=== PATIENT | female | born 2000 | race Caucasian/White ===

== ENCOUNTER 2023-09-30 16:32 | Outpatient (RCR) | payer OTHER, SELFPAY | END 2023-09-30 23:59 | disposition home or self-care (01) | LOC: RPT 16:32 | PROVIDERS: ATTENDING PHYSICIAN Family Medicine | DX: M99.01 Segmental and somatic dysfunction of cervical region (principal); M54.2 Cervicalgia; R29.3 Abnormal posture; M62.81 Muscle weakness (generalized); M54.6 Pain in thoracic spine; V49.9XXD Car occupant (driver) (passenger) injured in unspecified traffic accident, subsequent encounter | CPT/HCPCS: 97112; 97162; 97530 ==

== ENCOUNTER 2023-11-16 18:33 | Outpatient (RCR) | payer OTHER, SELFPAY | END 2023-11-16 23:59 | disposition home or self-care (01) | LOC: RPT 18:33 | PROVIDERS: ATTENDING PHYSICIAN Family Medicine | DX: M99.01 Segmental and somatic dysfunction of cervical region (principal); M54.2 Cervicalgia; R29.3 Abnormal posture; M62.81 Muscle weakness (generalized) | CPT/HCPCS: 97010; 97110; 97112; 97140 ==

== ENCOUNTER 2023-12-01 19:06 | Outpatient (RCR) | payer OTHER, SELFPAY | END 2023-12-02 07:46 | disposition home or self-care (01) | LOC: RPT 19:06 | PROVIDERS: ATTENDING PHYSICIAN Family Medicine | DX: M99.01 Segmental and somatic dysfunction of cervical region (principal); M54.2 Cervicalgia; R29.3 Abnormal posture; M62.81 Muscle weakness (generalized) | CPT/HCPCS: 97010; 97110; 97112; 97530 ==